=== PATIENT | female | born 1990 | race Asian ===

== ENCOUNTER 2016-12-31 18:29 | Emergency (ER) | payer OTHER ==
[~2016-12-31] VITALS: Ht 165.1 cm; Wt 62.0 kg
[2016-12-31 18:37] VITALS: Ht 165.1 cm; Wt 62.0 kg
[2016-12-31] MEDS ORDERED: BEN25 PO (18:57)
[2016-12-31] MEDS ORDERED: IBUP-1542 PO (18:57)
--- NOTE | 2016-12-31 19:05 | ERD ---
ER Documentation Chief Complaint Date/Time DATE: 12/31/16 TIME: 19:02 Chief Complaint spider bite on left leg, pt saw spider on leg HPI 26-year-old Female presents here in emergency department for complaints of a insect bite on the left lower leg, patient's complaining of pain, soreness, throbbing pain, 4/10 scale, says upon touching the area. Patient denies any redness swelling. Patient denies any fever or chills. Patient denies any discharge coming from the area. ROS All systems reviewed and are negative except as per history of present illness. Medications Home Meds Active Scripts Diphenhydramine Hcl* (Benadryl*) 25 Mg Cap, 25 MG PO Q6 Y for ITCHING/RASH, #30 TAB Prov:LUCY SANTOS OIL SEPARATOR 12/31/16 Ibuprofen* (Motrin*) 600 Mg Tab, 600 MG PO Q6H Y for PAIN AND OR ELEVATED TEMP, #30 TAB Prov:LUCY SANTOS NP 12/31/16 Allergies Allergies: Coded Allergies: No Known Allergy (Unverified , 12/31/16) PMhx/Soc Medical and Surgical Hx: pt denies Medical Hx, pt denies Surgical Hx FmHx Family History: No coronary disease, No diabetes, No other Physical Exam Vitals Vital Signs Date Time Temp Pulse Resp B/P Pulse Ox O2 Delivery O2 Flow Rate FiO2 12/31/16 18:37 98.0 79 18 109/58 98 Physical Exam GENERAL: The patient is well developed and appropriate for usual state of health, in no apparent distress. CHEST: Clear to auscultation bilaterally. There are no rales, wheezes or rhonchi. HEART: Regular rate and rhythm. No murmurs, clicks, rubs or gallops. No S3 or S4. ABDOMEN: Soft, nontender and nondistended. Good bowel sounds. No rebound or guarding. No gross peritonitis. No gross organomegaly or masses. No Doll sign or McBurney point tenderness. BACK: No midline or flank tenderness. EXTREMITIES: Equal pulses bilaterally. There is no peripheral clubbing, cyanosis or edema. No focal swelling or erythema. Full range of motion. Grossly neurovascularly intact. NEURO: Alert and oriented. Cranial nerves 2-12 intact. Motor strength in all 4 extremities with 5/5 strength. Sensation grossly intact. Normal speech and gait. SKIN: Noted small maculopapular rash in the left lower leg, 0.5 cm diameter. No noted, mild tenderness on palpation There is no apparent ecchymosis or petechia. The skin is warm and dry. HEMATOLOGIC AND LYMPHATIC: There is no evidence of excessive bruising or lymphedema. No gross cervical, axillary, or inguinal lymphadenopathy. Procedures/MDM Medical decision making: Patient symptoms like it consistent with an insect bite. No symptoms of any abscess at this time, and symptoms of any infection at this time. The symptoms of any neurovascular compromise. No symptoms of any anaphylaxis. Patient was given for ibuprofen for pain, is advised to apply warm compresses on affected area. patient is advised to return to emergency department for worsening symptoms. follow-up with primary care doctor in 2-3 days for reevaluation of symptoms Departure Diagnosis: Primary Impression: Insect bite Encounter type: initial encounter Qualified Code: W57.XXXA - Insect bite, initial encounter Condition: Stable Patient Instructions: Insect Bite LUCY SANTOS NP Dec 31, 2016 19:05
== END 2016-12-31 18:58 | disposition home or self-care (01) ==
LOC: E/R 18:29
DX: S80.862A Insect bite (nonvenomous), left lower leg, initial encounter (principal); W57.XXXA Bitten or stung by nonvenomous insect and other nonvenomous arthropods, initial encounter; Y92.9 Unspecified place or not applicable
CPT/HCPCS: 99283